=== PATIENT | female | born 2000 | race Hispanic/Latino ===

== ENCOUNTER 2021-10-19 22:38 | Emergency (ER) | payer OTHER ==
[~2021-10-19] VITALS: Ht 152.4 cm; Wt 54.0 kg
[2021-10-19 22:43] VITALS: BP 115/67
== END 2021-10-19 23:00 | disposition left against medical advice (07) ==
LOC: EDH 22:38
DX: F41.9 Anxiety disorder, unspecified (principal); Z53.21 Procedure and treatment not carried out due to patient leaving prior to being seen by health care provider